=== PATIENT | male | born 1990 | race Caucasian/White ===

== ENCOUNTER 2024-11-23 11:29 | Emergency (ER) | payer SELFPAY ==
[2024-11-23 11:41] VITALS: BP 115/79; PULSE 67; RESP 18; TEMP 98; BMI 25.7
[2024-11-23] MEDS: IBUPROFEN 600 MG TABLET (FP) PO ONE (12:25)
[2024-11-23] MEDS ORDERED: IBUPROFEN 600 MG TABLET (FP) PO ONE (12:26)
== END 2024-11-23 14:27 | disposition home or self-care (01) ==
LOC: JER 11:29
DX: S39.011A Strain of muscle, fascia and tendon of abdomen, initial encounter (principal); N43.3 Hydrocele, unspecified; X50.0XXA Overexertion from strenuous movement or load, initial encounter
CPT/HCPCS: 76856-TC; 76870-TC; 99284-25